=== PATIENT | male | born 1990 | race Caucasian/White ===

== ENCOUNTER 2024-11-12 10:15 | Day surgery (SDC) | payer BC, SELFPAY ==
[2024-11-10 15:57] VITALS: BMI 21.9
--- NOTE | 2024-11-11 12:44 | HO.ANESPROP2 ---
Documented by User: Raquel Hernandez NP 11/11/24 12:44 HPI - Anesthesia Eval Consult details Narrative: 34yo M for Colonoscopy Eliquis for PE [facility] Past Medical History Medical History Hx of Clostridium difficile infection (~07/2024) History of diverticulitis (~07/2024) Smoker History of immunotherapy BRCA1 positive Seizure disorder History of pulmonary embolus (PE) Colitis Surgical History Surgical History Hx of knee surgery Hx of melanoma excision Social History Social History Patient Tobacco Use Status: Current everyday Tobacco user Tobacco use type: Cigarette Cigarettes Per Day: 20 Use of substances other than those prescribed or required for medical reasons: Yes Are you DNR?: No Advance Directives: No Advance Directives Information Provided: Yes Meds Allergies Allergy/AdvReac Type Severity Reaction Status Date / Time No Known Allergies Allergy Verified 11/12/24 10:45 Home Medications ?Medication ?Instructions ?Recorded ?Confirmed ?Last Taken ?Type apixaban 5 mg tablet (Eliquis) 5 mg PO BID 11/10/24 11/10/24 11/10/24 09:00 History divalproex 500 mg tablet,delayed 1,000 mg PO BID 11/10/24 11/10/24 11/12/24 History release topiramate 100 mg tablet 100 mg PO BID 11/10/24 11/10/24 11/12/24 History multivitamin 1 tab PO DAILY 11/12/24 11/12/24 11/12/24 History Exam Height,Weight and Vital Signs: Height 6 ft 3 in Weight 79.379 kg Assessment and Plan Assessment Anesthesia Assessment: Chart Reviewed Documented by User: Eleni Britton DO 11/12/24 10:59 [facility], [facility] Past Medical History Medical History Hx of Clostridium difficile infection (~07/2024) History of diverticulitis (~07/2024) Smoker History of immunotherapy BRCA1 positive Seizure disorder History of pulmonary embolus (PE) Colitis Family History Family history of problems with anesthesia: No Surgical History Surgical History Hx of knee surgery Hx of melanoma excision History of Problems with Anesthesia: No Social History Social History Patient Tobacco Use Status: Current everyday Tobacco user Tobacco use type: Cigarette Cigarettes Per Day: 20 Use of substances other than those prescribed or required for medical reasons: Yes Are you DNR?: No Advance Directives: No Advance Directives Information Provided: Yes Meds Allergies Allergy/AdvReac Type Severity Reaction Status Date / Time No Known Allergies Allergy Verified 11/12/24 10:45 Home Medications ?Medication ?Instructions ?Recorded ?Confirmed ?Last Taken ?Type apixaban 5 mg tablet (Eliquis) 5 mg PO BID 11/10/24 11/10/24 11/10/24 09:00 History divalproex 500 mg tablet,delayed 1,000 mg PO BID 11/10/24 11/10/24 11/12/24 History release topiramate 100 mg tablet 100 mg PO BID 11/10/24 11/10/24 11/12/24 History multivitamin 1 tab PO DAILY 11/12/24 11/12/24 11/12/24 History Exam Exam Date and Time: 11/12/24 1050 Height,Weight and Vital Signs: Height 6 ft 3 in Weight 79.379 kg Vital Signs Temperature 98.2 F 11/12/24 10:43 Pulse Rate 46 L 11/12/24 10:43 Respiratory Rate 15 11/12/24 10:43 Blood Pressure 104/66 11/12/24 10:43 Pulse Oximetry 99 11/12/24 10:43 Oxygen Delivery Method Room Air 11/12/24 10:43 Temperature 98.2 F 11/12/24 10:43 Pulse Rate 46 L 11/12/24 10:43 Respiratory Rate 15 11/12/24 10:43 Blood Pressure 104/66 11/12/24 10:43 Pulse Oximetry 99 11/12/24 10:43 Oxygen Delivery Method Room Air 11/12/24 10:43 Airway Mallampati Class: II TM Dist: >3cm Neck ROM: Full Loose/Missing/Broken Teeth: No (patient denies any loose or broken teeth) Heart: S1S2 Lungs: CTAB Assessment and Plan Assessment Anesthesia Assessment: Anesthesia Plan Discussed and Chart Reviewed Final Anesthetic Review Family History of Problems with Anesthesia: No History of Problems with Anesthesia: No NPO: Yes ASA Class: II Final Preanesthetic Review: No Changes in Pt Med Stat, Meds/Allgs Chart Reviewed, Consent Obtained/Reviewed and Anes Risks/Benef Reviewed Patient Risk: Low Procedure Risk: Low Anesthetic Plan Anesthetic Plan: MAC: and Agree w/ Assess. and Plan Disposition: Standard PACU
--- NOTE | 2024-11-12 10:13 | MHC.SHP ---
Pre-Procedural Eval Section A - 24 Hr Update-Section A only Date of Service: 11/12/24 The patient is an INPATIENT: No Changes since office visit: No Cold of Flu in the past 2 weeks, No New Medical Problems, No Changes in Medication and No Patient answered all questions The patient has been examined within 24 hours of the surgical procedure. The History & Physical has been completed within 30 days and I have reviewed it.: Yes Section B - Complete if H&P > 30 days Chief Complaint: diarrhea,abnormal findings Allergies: Allergies Allergy/AdvReac Type Severity Reaction Status Date / Time No Known Allergies Allergy Verified 11/11/24 12:44 Plan I have reviewed the history and physical and performed a pertinent physical examination on my patient. No changes have occurred unless specified. Time Spent With Patient Time: Total time managing care of this patient today ____ minutes.
[2024-11-12 10:26] VITALS: BMI 22.7
[2024-11-12 10:43] VITALS: BP 104/66; PULSE 46; RESP 15; TEMP 36.8; O2SAT 99
[2024-11-12] MEDS: Lactated Ringers 1,000 ML 100 ML IVCONT (10:50)
[2024-11-12 11:25] VITALS: BP 90/53; PULSE 59; RESP 16; TEMP 36.1; O2SAT 99
[2024-11-12 11:40] VITALS: BP 105/62; PULSE 51; RESP 16; TEMP 36.3; O2SAT 100
--- NOTE | 2024-11-12 11:45 | OP_ITS ---
DATE OF SERVICE: 11/12/2024 SURGEON: Francis Donahue MD INDICATIONS: Abnormal CT scan, diarrhea. PREOPERATIVE DIAGNOSIS: POSTOPERATIVE DIAGNOSIS: PROCEDURE PERFORMED: Colonoscopy to the terminal ileum with biopsy and snare polypectomy. ESTIMATED BLOOD LOSS: COMPLICATIONS: ANESTHESIA: Monitored anesthesia care. ASSISTANTS: SPECIMENS: DESCRIPTION OF PROCEDURE: A history and physical performed. The risks and benefits of the procedure were explained to the patient. Informed consent was obtained. The patient was placed in the left lateral decubitus position. A digital rectal exam was performed and was found to be normal. The Olympus pediatric videocolonoscope was introduced into the rectum and advanced to the cecum. The cecum was identified by transillumination, palpation, identification of the ileocecal valve. Examination was performed. The scope was removed. He tolerated the procedure well and he was returned to recovery area in stable condition. FINDINGS: The terminal ileum was examined and appeared normal. This was biopsied. The visualized colonic mucosa was normal. Biopsies were obtained from the cecum. At 20 cm from the anal verge was a 10 mm pedunculated polyp. This was removed with a snare and recovered via suction. No other polyps were identified. Retroflexed examination was normal. The quality of prep was good. IMPRESSION: Colon polyp. RECOMMENDATION: Followup with the biopsy results. MD ZACKARY Lockett/STELLA / [id number] MTDD
== END 2024-11-12 12:12 | disposition home or self-care (01) ==
PROVIDERS: PCP Family Medicine; Visit Provider Internal Medicine Gastroenterology
PROC: 0DJD8ZZ Inspection of Lower Intestinal Tract, Via Natural or Artificial Opening Endoscopic (ICD-10-PCS; CPT 45378; principal; 2024-11-12 10:40)
DX: D12.5 Benign neoplasm of sigmoid colon (principal); R19.7 Diarrhea, unspecified; R93.3 Abnormal findings on diagnostic imaging of other parts of digestive tract; R63.4 Abnormal weight loss; Z68.21 Body mass index [BMI] 21.0-21.9, adult; G40.909 Epilepsy, unspecified, not intractable, without status epilepticus; G37.9 Demyelinating disease of central nervous system, unspecified; F17.200 Nicotine dependence, unspecified, uncomplicated; Z86.711 Personal history of pulmonary embolism; Z79.01 Long term (current) use of anticoagulants; Z79.899 Other long term (current) drug therapy
CPT/HCPCS: 45385; 45380; 88305; J2704